=== PATIENT | male | born 1940 | race Caucasian/White ===

== ENCOUNTER → 2016-03-13 | Day surgery (SDC) | payer OTHER ==
[2016-03-07 13:32] VITALS: Ht 180.3 cm; Wt 106.4 kg
[~2016-03-13] VITALS: Ht 180.3 cm; Wt 106.4 kg
[~2016-03-13] MED LIST: 500ML BSS 0.3ML EPI 1:1000PF IRRIG ONE; ACETAMINOPHEN 325 MG TAB PO PRN; AMVISC PLUS 0.8ML SYRINGE INT OCU ONE; ATOR-24 PO; BRIMONIDINE TART 0.2% OP SOLN PER DROP CHARGE ONE; BSS FLUSH ONE; CLON0.5T3 PO; DARI15TA PO; ENDOCOAT 0.85ML SYRINGE INT OCU ONE; EpINEphrine INJ 1MG/ML AMP 1 MG/ML AMP ONE; FURO-85 PO; IRON PO; LACTATED RINGER'S 1000ML 500 ML IV SCH; LIDOCAINE 4% OP SOLN DROP CHARGE ONE; LIDOCAINE 4% OP SOLN DROP CHARGE OPL SCH; LIDOCAINE HCL 1% MPF 2 ML VIAL ONE; MIDAZOLAM HCL 1 MG/ML 2ML VIAL ONE; MOXIFLOXACIN OPH SOLN PER DROP CHARGE ONE; POTA10CA28 PO; POVIDONE-IODINE OP SOLN 30 ML BTL ONE; PROP80TA2 PO; PROPARACAINE 0.5% OP SOLN PER DROP CHARGE OPL SCH; PROPARACAINE HCL 0.5% OP SOLN 15 ML BTL OPL ONE; RANI150T3 PO; TOBRAMYCIN/DEXAMETHASONE OPH OINT PER APPLN CHARGE ONE; VITAMIN D2 PO; [UNRECOGNIZED DRUG - OTHER] PO
[2016-03-13] MEDS: PHENYLEPHRINE HCL 2.5% OP SOLN PER DROP CHARGE OPL SCH ×2 (07:37→07:42)
[2016-03-13] MEDS: TROPICAMIDE 1% OP SOLN PER DROP CHARGE OPL SCH ×2 (07:38→07:43)
[2016-03-13] MEDS: CYCLOPENTOLATE HCL 1% OP SOLN PER DROP CHARGE OPL SCH ×2 (07:39→07:44)
[2016-03-13] MEDS: KETOROLAC 0.5% OP SOLN PER DROP CHARGE OPL SCH ×2 (07:40→07:45)
[2016-03-13] MEDS: MOXIFLOXACIN OPH SOLN PER DROP CHARGE OPL SCH ×2 (07:41→07:51)
--- NOTE | 2016-03-13 08:09 | History & Physical Bridge - [place] ---
H&P Re-Evaluation Bridge Note: I have examined the patient, reviewed the History & Physical and in the interval since the performance of the History & Physical I have noted the following changes of clinical significance: No changes noted
--- NOTE | 2016-03-13 08:59 | Anesthesia Progress Nt - [facility] ---
Anesthesia Post Op Note Date & Time Mar 13, 2016 at 09:00 Vital Signs Pain Intensity: 0 Vital Signs Past 12 Hours Date Time Temp Pulse Resp B/P Pulse Ox O2 Delivery O2 Flow Rate FiO2 03/13/16 08:43 16 148/95 03/13/16 08:42 49 03/13/16 08:42 49 168/95 96 03/13/16 08:38 16 158/89 03/13/16 08:37 50 03/13/16 08:37 50 95 03/13/16 08:34 16 165/87 03/13/16 07:54 59 16 159/81 03/13/16 07:31 36.3 52 16 165/99 95 Room Air Notes Mental Status: alert / awake / arousable, participated in evaluation Nausea / Vomiting: adequately controlled Pain: adequately controlled Airway Patency, RR, SpO2: stable & adequate BP & HR: stable & adequate Hydration State: stable & adequate Anesthetic Complications: no major complications apparent
[2016-03-13 09:15] VITALS: TEMP 36.1
--- NOTE | 2016-03-13 09:15 | Discharge Instructions-SurgCtr ---
Discharge Instructions Visit Reason for Visit: Cataract Left Eye Discharge Discharge Diagnosis / Problem: cataract left eye Discharge Goals Goal(s): Improve function Activity Recommendations Activity Limitations: per Instructions/Follow-up section Lifting Limitations: no more than 5 pounds Anesthesia . Post Anesthesia Instructions: If you have had General Anesthesia or IV Sedation: * Do not drive today. * Resume driving when surgeon permits. * Do not make important decisions or sign legal documents today. * Call surgeon for: 1. Temperature elevations greater than 101 degrees F. 2. Uncontrollable pain. 3. Excessive bleeding. 4. Persistent nausea and vomiting. 5. Medication intolerance (nausea, vomiting or rash). * For nausea and vomiting use only clear liquids such as: tea, soda, bouillon until nausea subsides, then gradually increase diet as tolerated. * If you have any concerns or questions, call your surgeon's office. If physician is unavailable and it is an emergency, call 911 or go to the nearest emergency room. . Instructions / Follow-Up Instructions / Follow-Up ACTIVITY RECOMMENDATIONS: * Light activities * You may walk outside, read, watch television. * Mild irritation and blurred vision are common for the first few days, redness around the white part of the eye is common. MEDICATIONS: Resume previous medications unless instructed otherwise by your surgeon. Eye drops (today and tomorrow): Vigamox - one drop in operative eye every 2 hours while awake Prednisolone 1% - one drop in operative eye every 2 hours while awake Bromfenac - one drop in operative eye once daily SPECIAL CARE INSTRUCTIONS: * If any problems or concerns, please call Dr. Jc's office at . * Keep plastic shield taped over eye to sleep at night. * Keep plastic shield taped over eye except to administer eye drops. * Keep plastic shield on until office visit the following day. FOLLOW UP VISIT: Follow-up with Dr. Jc in the [place] office as scheduled. If not already scheduled, please call the office at . Diet Recommendations Home Diet: resume previous diet Procedures Procedures Performed: Left Cataract Phacoemulsification With Intraocular Lens Implant; Toric Lens Pending Studies Studies pending at discharge: no Medical Emergencies . Who to Call and When: Medical Emergencies: If at any time you feel your situation is an emergency, please call 911 immediately. . Non-Emergent Contact Non-Emergency issues call your: [employer] . . "Provider Documentation" section prepared by Gian Jc.
--- NOTE | 2016-03-13 09:16 | [facility] Post Operative Brief Note ---
Immediate Operative Summary Operative Date Mar 13, 2016. Pre-Operative Diagnosis Left Eye Cataract Post-Operative Diagnosis Same Procedure(s) Performed Left Cataract Phacoemulsification With Intraocular Lens Implant; Toric Lens Surgeon Dr Jc Quantitative Manager Surgeon(s) None Estimated Blood Loss 0ml Findings cataract left eye Specimens None Complication(s) None Disposition Recovery Room / PACU
[2016-03-13 09:36] VITALS: BP 155/94; PULSE 59; O2SAT 97
--- NOTE | 2016-03-13 09:47 | OPERATIVE REPORT ---
DATE OF OPERATION: 03/13/2016 PREOPERATIVE DIAGNOSIS: Cataract and astigmatism, left eye. POSTOPERATIVE DIAGNOSIS: Same. PROCEDURE PERFORMED: Phacoemulsification cataract extraction with toric intraocular lens placement with femtosecond laser, left eye. COMPLICATIONS: None. ESTIMATED BLOOD LOSS: None. ANESTHESIA: Local with sedation. DESCRIPTION OF PROCEDURE: After informed consent was obtained in the holding area, the patient was taken to the femtosecond laser room where the patient's left eye was docked with the femtosecond laser. The primary incision was made at the 3 o'clock position of the patient's left eye as well as the capsulorrhexis and prechop of the lens. Once this was completed, the patient was taken to the operating room where cardiac monitoring leads and oxygen by nasal cannula was administered by anesthesia. Gentle IV sedation was given and the patient's left eye was prepped and draped in usual sterile fashion. A wire lid speculum was placed in the left eye and the operating microscope swung into position. Using 0.12 forceps and a supersharp blade, a paracentesis port was made 5 o'clock position of the patient's left eye. 1% nonpreserved lidocaine was injected into the anterior chamber for anesthesia. EndoCoat was then injected into the anterior chamber. A Sd spatula was then used to enter the primary incision at the 3 o'clock position of the patient's left eye. Amvisc was then injected underneath the EndoCoat on top of the capsulorrhexis and the free floating cap was removed with the Utrata forceps. BSS on a hydrodissection cannula was then used to hydrodissect the lens nucleus away from the capsular bag. The phacoemulsification handpiece was then used in a stop and chop fashion to remove the lens nucleus. Irrigation aspiration handpiece was then used to remove the residual cortical material. The eye was then filled with Amvisc and an BREE ZCT 225 19.0 Diopter intraocular lens was injected into the capsular bag. The primary incision was then hydrated and the irrigation-aspiration handpiece was used to remove the viscoelastic material from the eye. At the conclusion of removing the viscoelastic material, the toric lens was aligned along the 157 degree axis of the patient's left eye. The wounds were noted to be watertight. The wire lid speculum was removed from the eye, Vigamox, brimonidine and TobraDex ointment were placed on the eye and the eye was shielded. The patient tolerated the procedure well and was taken to recovery area in stable condition. I attest to the content of the Intraoperative Record and any orders documented therein. Any exceptions are noted below. MTDD
== END | disposition home or self-care (01) ==
LOC: X.SURG 07:18
PROVIDERS: ATTEND Ophthalmology
DX: H26.9 Unspecified cataract (principal); H52.202 Unspecified astigmatism, left eye; I10 Essential (primary) hypertension; Z98.41 Cataract extraction status, right eye; Z98.890 Other specified postprocedural states; Z85.828 Personal history of other malignant neoplasm of skin; E66.9 Obesity, unspecified; Z79.899 Other long term (current) drug therapy

== ENCOUNTER → 2017-03-16 | Outpatient (CLI) | payer OTHER ==
[~2017-03-16] MED LIST changes: -500ML BSS 0.3ML EPI 1:1000PF IRRIG ONE; -ACETAMINOPHEN 325 MG TAB PO PRN; -AMVISC PLUS 0.8ML SYRINGE INT OCU ONE; -BRIMONIDINE TART 0.2% OP SOLN PER DROP CHARGE ONE; -BSS FLUSH ONE; -ENDOCOAT 0.85ML SYRINGE INT OCU ONE; -EpINEphrine INJ 1MG/ML AMP 1 MG/ML AMP ONE; -LACTATED RINGER'S 1000ML 500 ML IV SCH; -LIDOCAINE 4% OP SOLN DROP CHARGE ONE; -LIDOCAINE 4% OP SOLN DROP CHARGE OPL SCH; -LIDOCAINE HCL 1% MPF 2 ML VIAL ONE; -MIDAZOLAM HCL 1 MG/ML 2ML VIAL ONE; -MOXIFLOXACIN OPH SOLN PER DROP CHARGE ONE; -POVIDONE-IODINE OP SOLN 30 ML BTL ONE; -PROPARACAINE 0.5% OP SOLN PER DROP CHARGE OPL SCH; -PROPARACAINE HCL 0.5% OP SOLN 15 ML BTL OPL ONE; -TOBRAMYCIN/DEXAMETHASONE OPH OINT PER APPLN CHARGE ONE
== END | disposition home or self-care (01) ==
LOC: C.LABPVFM 09:13
PROVIDERS: ATTEND Urology
DX: N40.0 Benign prostatic hyperplasia without lower urinary tract symptoms (principal)

== ENCOUNTER → 2017-07-02 | Outpatient (CLI) | payer OTHER ==
--- NOTE | 2017-07-02 12:40 | DIAGNOSTIC IMAGING REPORT ---
CHEST 2 VIEWS ROUTINE HISTORY: Cough. COMPARISON: Chest 09/29/2008. FINDINGS: The lungs are clear. Cardiac silhouette is normal in size. No pleural effusions. No pneumothorax. IMPRESSION: No acute process. Electronically signed by: Patricio Felix M.D. 07/02/2017 12:39 PM Dictated Date/Time: 07/02/2017 12:37 PM
== END | disposition home or self-care (01) ==
LOC: C.RAD 12:06
PROVIDERS: ATTEND Family Medicine
DX: R05 Cough (principal); D86.0 Sarcoidosis of lung

== ENCOUNTER 2019-08-19 06:43 | Observation (INO) ==
--- NOTE | 2019-08-03 11:54 | History and Physical Report ---
DATE OF ADMISSION: 08/19/2019 CHIEF COMPLAINT: Bilateral knee pain and discomfort, right side greater than left. HISTORY OF PRESENT ILLNESS: The patient is a 78-year-old gentleman who is referred by my partner, Dr. Priest, for surgical treatment of his knees. He has a long history of bilateral knee pain and discomfort that has gradually gotten worse over time. He does have a history of trauma back in the with bilateral femur fractures, treated in traction. Over the years, he developed increased pain and discomfort in both knees. He has been through extensive conservative care including medicines and injections, which provided pretty minimal relief. Pain is fairly global. The more he walks, the more it hurts. He has limited walking tolerance. He would like to have both knees replaced at some point, but the right one is worse than the left. PAST MEDICAL HISTORY: 1. Hypertension. 2. Elevated cholesterol. 3. Gastroesophageal reflux disease. 4. BPH. 5. Kidney stones. 6. Peripheral edema. PAST SURGICAL HISTORY: Include: 1. Back surgery. 2. Cataract surgery. 3. Left knee open surgery in the . ALLERGIES: PENICILLIN, WHICH CAUSES A RASH. No breathing problems. CURRENT MEDICINES: Include: 1. Clonazepam 0.5 mg a day. 2. Atorvastatin 40 mg. 3. Propranolol 80 mg. 4. Darifenacin 2.5 mg. 5. Alfuzosin 10 mg. 6. Myrbetriq 50 mg a day. SOCIAL HISTORY: A 78-year-old male. He is . Lives in [place]. Does not smoke. No significant alcohol intake. FAMILY HISTORY: Noncontributory. REVIEW OF HISTORY: Negative for diabetes, neurologic problems, vascular problems or bleeding disorders. Denies any current chest pain or shortness of breath. No history of DVT or PE. PHYSICAL EXAMINATION: GENERAL: Shows a fairly large middle-aged male. He has a fairly large stature. HEENT: Benign. NECK: Supple, no lymphadenopathy. LUNGS: Clear to auscultation. HEART: Has regular rate and rhythm. ABDOMEN: Soft, nontender, nondistended. EXTREMITIES: Grossly neurovascularly intact except as follows: Examination of both knees reveal patient walks with a bit of a waddling gait and keeps his knees a bit stiff. Examination of the right knee reveals varus alignment. He is tender over the medial joint line. Small knee effusion. Range of motion about 5 degrees short of full extension and 120 degrees of flexion. There is no instability. No pain with hip motion. Examination of the right foot and leg does reveal this varus alignment and he does have some weakness with foot motion, particularly dorsiflexion, plantarflexion and eversion. Examination of the left knee reveals varus alignment. He has got well-healed oblique incision on the medial side of his knee. Small knee effusion. Range of motion 5-125. No instability. X-RAYS: X-rays of both knees reveal advanced bilateral knee DJD. He has got complete loss of medial joint space in both knees. He has got some tibial femoral subluxation bilaterally. He does have evidence of distal femoral malunion on the right side. X-rays of the right femur reveal a mid to distal femur malunion. The alignment is pretty good. Maybe just a little bit of valgus and the shaft itself was completely displaced, but in pretty good alignment otherwise. ASSESSMENT: A 78-year-old male with a history of bilateral femur fractures in the past as well as a left open meniscectomy with bilateral knee degenerative joint disease. He failed all conservative care. The right knee is bothered more than the left, and he would like to proceed with knee replacement. PLAN: We are going to take him to the operating room and do a right total knee replacement. The risks and benefits of this procedure were explained to the patient including but not limited to DVT, PE, , infection, neurological injury, vascular injury, bleeding problem, pain, limited range of motion, stiffness, failure to relieve symptoms, incomplete relief of symptoms, need for further surgery in the future, fracture, leg length inequality, nerve palsy, etc. The patient understands and desires to proceed. Informed consent was obtained. Of note, he does have significnant weakness in the right foot related to previous trauma with foot dorsiflexion and plantarflexion about 1 out of 5 strenght. I did tell him that this is not going to make this any better and he is fully aware of that up with his added. He does report this PENICILLIN ALLERGY, but it is just a rash. We will give him Ancef. I do think that we can just use a typical intramedullary guide despite his malunion as it is pretty well aligned. He does have slight rotation of the femur distally and we will need to check intraoperatively and make sure his femoral component is adequately externally rotated. As far as discharge plans, he is planning to be discharged to home using [facility] home health program. MABEL
--- NOTE | 2019-08-09 22:28 | PAT Medication Instructions ---
Medication Instructions Date of Service August 09, 2019 Home Medications Medication Instructions Recorded meloxicam 15 mg tablet 15 mg PO DAILY PRN #30 tab 03/03/19 atorvastatin 40 mg tablet 40 mg PO HS clonazepam 0.5 mg tablet 0.5 mg PO HS propranolol 80 mg capsule,24 hr,extended release 80 mg PO QAM meloxicam 15 mg tablet 15 mg PO DAILY PRN darifenacin 7.5 mg tablet,extended release 24 hr 7.5 mg PO QAM alfuzosin 10 mg PO QPM calcium carbonate [Tums E-X] 1 mg PO UD PRN mirabegron [Myrbetriq] 50 mg PO QAM ASK your surgeon for instructions meloxicam 15 mg tablet 15 mg PO DAILY PRN DO NOT take the morning of surgery darifenacin 7.5 mg tablet,extended release 24 hr 7.5 mg PO QAM calcium carbonate [Tums E-X] 1 mg PO UD PRN mirabegron [Myrbetriq] 50 mg PO QAM Take morning of surgery With a small sip of water, OTHERWISE NOTHING TO EAT OR DRINK AFTER MIDNIGHT: propranolol 80 mg capsule,24 hr,extended release 80 mg PO QAM Take evening before surgery atorvastatin 40 mg tablet 40 mg PO HS clonazepam 0.5 mg tablet 0.5 mg PO HS alfuzosin 10 mg PO QPM calcium carbonate [Tums E-X] 1 mg PO UD PRN (if needed) Other Notes If you have any questions please call us at [phone] or [phone] or [phone] or [phone]
--- NOTE | 2019-08-12 12:49 | Anesthesiology Consultation ---
Date of Service August 12, 2019 Assessment & Plan (1) Encounter for pre-operative examination: Per PAT assessment on 08/11: Travel screen negative. No known COVID-19 positive contacts. No current COVID-19 related symptoms. Patient having preop COVID testing done 08/13 ([facility]). Awaiting results. 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 Due to this EKG abnormality, patient underwent an Echocardiogram today.. Based on his functional status without limiting cardiopulmonary symptoms and his normal LV systolic function -- Patient is an acceptable surgical risk to proceed with surgery as scheduled provided he take his usual dose of Propranolol ER 80 mg the morning of surgery with sips of water. There is no need for further cardiac workup at this time." Chart Review Chart Review: Acceptable Risk for Surgery (pending T&S) and Patient seen in Pre Admission Testing Teaching & Discussion Pre-Anesthesia Teaching/Discussion Notes: Instructed NPO after midnight before surgery,except medications with 15 cc of water. Medication instructions provided according to the [facility] guidelines. History Surgery Operation Date: 08/19/19 12:30 Proposed Procedures p Right Total Knee Arthroplasty - Tha Mueller MD Height/Weight Height: 5 ft 10 in Weight: 107.4 kg Allergies Allergy/AdvReac Type Severity Reaction Status Date / Time amoxicillin Allergy Unknown RASH Verified 08/05/19 11:32 Penicillins Allergy Unknown Rash Verified 08/05/19 11:32 ALLERGEN AdvReac Unknown resulted Uncoded 08/05/19 11:32 in kidney dysfunction Medications Home Medications Medication Instructions Recorded Confirmed Last Taken atorvastatin 40 mg tablet 40 mg PO HS #90 tab 12/09/18 08/05/19 Unknown clonazepam 0.5 mg tablet 0.5 mg PO HS #30 tab 12/09/18 08/05/19 Unknown propranolol 80 mg capsule,24 80 mg PO QAM #90 cap 12/09/18 08/05/19 Unknown hr,extended release meloxicam 15 mg tablet 15 mg PO DAILY PRN #30 tab 03/03/19 08/05/19 Unknown darifenacin 7.5 mg tablet,extended 7.5 mg PO QAM tab 06/27/19 08/05/19 Unknown release 24 hr alfuzosin 10 mg PO QPM 08/05/19 08/05/19 Unknown calcium carbonate [Tums E-X] 1 mg PO UD PRN 08/05/19 08/05/19 Unknown mirabegron [Myrbetriq] 50 mg PO QAM 08/05/19 08/05/19 Unknown Past Medical History Medical History BPH (benign prostatic hyperplasia) CKD (chronic kidney disease) under surveillance by PCP (baseline creatinine 1.5 per chart review) GERD (gastroesophageal reflux disease) controlled Hearing deficit History of kidney stones History of skin cancer s/p resection History of urinary urgency Hx of sarcoidosis stable/no recent issues Hyperlipidemia Hypertension Obesity Osteoarthritis Restless leg syndrome Exercise / Class Metabolic Activity III < 4 Walking/Shop/Light housework Past Family History Family History Sister Family history of diabetes mellitus Father Family hx of colon cancer Past Surgical History Surgical History History of esophagogastroduodenoscopy (EGD) History of lumbar fusion Hx of arthroscopic knee surgery LEFT Hx of cataract surgery RIGHT AND LEFT Hx of colonoscopy with polypectomy Past Anesthesia History No Hx of Anesthesia Complications and No Family Hx of Anesthesia Complications History of PONV No Hx of PONV and No Hx of Motion Sickness Social History Smoking Status: Never smoker Do You Dip or Chew Tobacco: No Hx Alcohol Use: No Hx Substance Use: No Review of Systems Patient denies chest pain, shortness of breath, fever, chills, reflux, cough, wheezing, palpitations. Physical Exam Vital Signs VITALS BP 136/76 P 54 TEMP 98.6 SP02 95%RA RESP 16 PHYSICAL Full neck and c-spine range of motion. Full TMJ range of motion. TMD 3 finger breaths Mallampati Score 2 Dentition: missing molars, + crowns Lungs: clear throughout to auscultation Cardiac: regular rate and rhythm, no murmurs noted Spine: normal Carotid arteries: negative bruit Extremities: no edema Testing Laboratory Results 08/12/19 13:16 08/12/19 13:16 PT 10.9 Seconds (9.0-12.0) 08/12/19 13:16 INR 1.0 (0.9-1.1) 08/12/19 13:16 APTT 28.8 Seconds (21.0-31.0) 08/12/19 13:16 Electrocardiogram Date: 04/28/19 SB at 54bpm. RBBB. LAFB. LVH with repolarization abnormality. Subsequent ECHO/cardiology evaluation for further evaluation of this* Chest X-Ray Date: 04/28/19 Findings: + NAD Echocardiogram Date: 06/27/19 EF 55%. No RWMA. Mild cLVH. No significant valvular disease.
[2019-08-12 15:49] LABS: Basophils # (auto) 0.01 K/uL (0-0.2); Basophils % (auto) 0.2 %; Eosinophils % (auto) 1.6 %; Hematocrit (blood only) 43.2 % (42-52); Hemoglobin 14.7 g/dL (14.0-18.0); Immature Granulocytes # (auto) 0.02 K/uL (0.00-0.02); Immature Granulocytes % (auto) 0.3 %; Lymphocytes # (auto) 2.36 K/uL (1.2-3.4); Lymphocytes % (auto) 36.8 %; Mean Corpuscular Hemoglobin 30.4 pg (25-34); Mean Corpuscular Volume 89.4 fL (80-100); Mean Platelet Volume 10.2 fL (7.4-10.4); Monocytes # (auto) 0.51 K/uL (0.11-0.59); Neutrophils # (auto) 3.41 K/uL (1.4-6.5); Neutrophils % (auto) 53.1 %; Platelet Count 217 K/uL (130-400); RDW Coefficient of Variation 12.6 % (11.5-14.5); RDW Standard Deviation 41.2 fL (36.4-46.3); Red Blood Count 4.83 M/uL (4.7-6.1); White Blood Count 6.41 K/uL (4.8-10.8)
[2019-08-12 15:57] LABS: Blood Urea Nitrogen 17 mg/dl (7-18); C Reactive Protein < 0.29 mg/dl (0-0.29); Calcium 8.5 mg/dl (8.5-10.1); Carbon Dioxide 25 mmol/L (21-32); Chloride 109 mmol/L (98-107); Est GFR (African American) 50.6; Est GFR (Non-African American) 43.7; Glucose 89 mg/dl (70-99); Sodium 141 mmol/L (136-145)
[2019-08-12 16:01] LABS: Partial Thromboplastin Time 28.8 Seconds (21.0-31.0); Prothrombin Time 10.9 Seconds (9.0-12.0)
[~2019-08-19 06:43] MED LIST changes: +ACETAMINOPHEN 500 MG TAB PO SCH; -ATOR-24 PO; +BUPIVACAINE LIPOSOME/PF 266 MG, BUPIVACAINE/EPINEPHRINE 50 ML, SODIUM CHLORIDE 0.9% 30 ... INFIL SCH; +CEFAZOLIN 2000MG 2,000 MG/15 ML SYR IV SCH; -CLON0.5T3 PO; -DARI15TA PO; +FAMOTIDINE 20 MG TAB PO SCH; -FURO-85 PO; +GABAPENTIN 300 MG CAP PO SCH; -IRON PO; +LR 500ML BOLUS, THEN 15ML/HR IV SCH; +LR 60ML/HR IV SCH; +METOCLOPRAMIDE HCL 10 MG TABLET PO SCH; -POTA10CA28 PO; -PROP80TA2 PO; -RANI150T3 PO; +TRANEXAMIC ACID 1,000 MG **IV Intra-op IV SCH; -VITAMIN D2 PO; -[UNRECOGNIZED DRUG - OTHER] PO
--- NOTE | 2019-08-19 06:52 | History & Physical Bridge Note ---
Date of Service August 19, 2019 History & Physical Bridge Note I have examined the patient, reviewed the History & Physical and in the interval since the performance of the History & Physical I have noted the following changes of clinical significance: no changes noted
[2019-08-19] MEDS ORDERED: BUPIVACAINE 0.5 % 5 MG/1 ML PF 10ML VIAL ONE (07:05)
[2019-08-19] MEDS ORDERED: BUPIVACAINE 0.25% 30 ML VIAL ONE (07:05)
[2019-08-19] MEDS ORDERED: BUPIVACAINE/EPINEPHRINE 0.25% 1:200,000 30 ML VIAL ONE (08:39)
[2019-08-19] MEDS ORDERED: SODIUM CHLORIDE 0.9% PF 50 ML VIAL ONE (08:39)
[2019-08-19] MEDS ORDERED: BUPIVACAINE LIPOSOME 1.3% 266 MG/20 ML VIAL ONE (08:40)
[2019-08-19] MEDS ORDERED: BACITRACIN INJ 50,000 UNIT VIAL ONE (08:40)
--- NOTE | 2019-08-19 10:37 | Post Operative Brief Note ---
PG Immediate Post Op with CF Date of Surgery August 19, 2019 Pre & Post Diagnosis Operation Date: 08/19/19 08:50 Pre-Op Diagnosis: Right Knee Advanced Degenerative Joint Disease Post-Op Diagnosis: Right Knee Advanced Degenerative Joint Disease I identified the patient and participated in the time-out.: Yes Procedure Operation Date: 08/19/19 08:50 Actual Procedures p Right Total Knee Arthroplasty(Right) - Tha Mueller MD Surgeon Tha Mueller MD Mixer Wet Pour Rick, PAC Estimated Blood Loss 50 Findings Consistent with Post-Op Diagnosis Fluids 700 cc Specimens Specimen Description: A. Right Knee Bone and Tissue Drains [place] Catheter Anesthesia Type Spinal MAC Complications none Disposition Accompanied Patient To Recovery: Yes Disposition: Recovery Room
--- NOTE | 2019-08-19 10:49 | Operative Report ---
Post Operative Report Pre & Post Diagnosis Operation Date: 08/19/19 08:50 Pre-Op Diagnosis: Right Knee Advanced Degenerative Joint Disease Post-Op Diagnosis: Right Knee Advanced Degenerative Joint Disease I identified the patient and participated in the time-out.: Yes Procedure Operation Date: 08/19/19 08:50 Actual Procedures p Right Total Knee Arthroplasty(Right) - Tha Mueller MD Surgeon Tha Mueller MD Accounting Lecturer Rick, PAC Estimated Blood Loss 50 Findings Consistent with Post-Op Diagnosis Operative findings real advanced right knee DJD. He had extensive grade 4 [id number] disease of the medial femoral condyle medial tibial plateau. He had a fixed varus deformity to his knee and had distal femoral malunion. Moderate sized joint effusion. Some mild diffuse osteopenia. Fluids 700 cc. Specimens Right knee sent for pathology. Drains None. Anesthesia Type Spinal MAC Complications none Disposition Accompanied Patient To Recovery: Yes Disposition: Recovery Room Indications Patient is a 78-year-old gentleman is had a long history of knee problems. He did sustain bilateral femur fractures back in the 70s from a fall and had distal femoral malunion on both side as result. He has been through extensive conservative treatment. He failed this. X-ray showed advanced bilateral knee DJD. The right side was more symptomatic than the left. He elected proceed with total knee arthroplasty. Despite his malleoli unions his alignment was pretty good and we were able to use intramedullary devices. He does have a history of chronic right lower extremity neurological injury due to this a fall back in the 70s and had weakness in his right leg and foot. Description of Procedure Operative implants consist of: 1. Biomet Vanguard size 72.5 right posterior by femoral component. 2. Biomet size 79 tibial tray. 3. 10 mm Po stabilized polyethylene insert. 4. 34 x 8 and half all poly-patella. Patient was taken to the operating room identified placed on the operating table supine position protectors were properly padded. IV antibiotics arrived by anesthesia team. A spinal anesthetic and abductor canal block had been provided in the holding area. Polk catheter was placed in sterile fashion. Right f actor was then placed in the right lower extremities and prepped draped in usual sterile fashion. Right leg was elevated exsanguinated with use of an Esmarch and turns placed at 300 mmHg. An anterior approach to the right knee was then performed through a longitudinal incision centered over the patella. Sharp dissection was gone through subcutaneous tissue down to the extensor mechanism. A medial parapatellar arthrotomy incision was made. Some subperiosteal dissection was carried out medially. The fat pad was resected from each patella tendon. The lateral patellofemoral ligament was released. Patella was subluxated laterally and the knee was flexed. The osteophytes were taken off distal femur. The ACL and PCL were then released in the distal femur and the tibia subluxate anterior ly. The external treatment line jig was then placed in the interface the tibia and adjusted 14 mm medially. Proximal tibial cut was made remove about 2 mm of bone from medial side. Some osteophytes were taken off medial and posterior medially. Tibia sized to a size 79. Attention drawn the femur. The distal femur then with a sharp drill. The intramedullary guide was placed. This only a went part way up the femur which we anticipated. Did give us good alignment within the femur. The distal femoral cutting block was placed. We used a 6 degree cut. The distal femoral cut was made to take an additional 3 mm bone off distal femur. The femur was then sized to a size 72.5. The AP cutting block was pinned parallel to the epicondylar axis which was 4 degrees of external rotation. The anterior cut, anterior chamfer, posterior cut, posterior chamfer cuts were made. Box cutting guide was placed in just slight lateral box cut was made. The knee was flexed. The remnants of medial lateral menisci were excised. The osteophytes were taken off the posterior aspect of the femur. A trial femoral component was placed. Tibial tray was pinned in maximum external rotation the drill and stem punch were used to create defect in proximal to for the tibial tray. Knee was then trialed and the 10 mm insert fit most appropriately. Attention drawn the patella. Patella was cleaned of all soft tissues. Patella thickness measured 23 mm in thickness was cut down to 14. Was sized to a size 34 patella. Locals were drilled for 34 patella. The lateral osteophyte was removed. Patella button was placed. Knee was taken through range of motion patella tracked nicely with no thumbs test. Attention drawn to place the permanent components. All trial components were removed. Bone plug was placed into the distal femur limit blood loss put a double batch Pal[place]os G cement was mixed. A [employer] Servicesard size 72.5 right posterior by femoral component, size 79 tibial tray, a 10 mm posterior box polyethylene insert, and a 34 by a Cristal all poly-patella were then cemented in place. The knee was brought out into full extension until cement hardened. Final cement check was then performed. Pericapsular tissues were injected with total 100 cc of combination of 20 cc of Exparel, 30 cc normal saline, 50 cc of quarter percent Marcaine with epinephrine. Patient did receive 1 g of tranexamic acid. The tourniquet was then let down for final tourniquet time 55 minutes. Hemostasis assured use electrocautery. The wounds once again irrigated. Extensor mechanism closed with combination 1 PDS suture #1 Vicryl suture in [id number] fashion. Extensor mechanism checked found to be intact with subcutaneous tissue then closed with 2 Dexon suture buried fascia skin was closed skin porsche. Leg was then cleaned dried a sterile dressing was Xeroform, 4 x 4's, sterile cast padding Dougie bandage were applied. Patient then transferred to the recovery room in stable condition. Patient tolerated procedure well no complications. I attest to the content of the Intraoperative Record and any orders documented therein. Any exceptions are noted below.
--- NOTE | 2019-08-19 10:58 | XRay Report ---
XR knee RT 1 or 2V routine HISTORY: 78 years-old Male Surgical Post Op right knee total joint arthroplasty COMPARISON: Right femur radiographs 04/28/2019 TECHNIQUE: 2 views the right knee FINDINGS: Healed remote fracture deformity of the distal femoral diaphysis. Right knee total joint arthroplasty demonstrates satisfactory alignment. No acute fracture or retained foreign body. Anterior midline sk in porsche are noted along with expected postsurgical soft tissue swelling and deep tissue air with s urgical drainage catheter. IMPRESSION: 1. Right knee total joint arthroplasty with expected postoperative findings. 2. Partially imaged healed remote distal femoral fracture deformity. ACT 112: Negative or not required by law. The above report was generated using voice recognition software. It may contain grammatical, syntax o r spelling errors. Electronically signed by: Edgar Mai M.D. 08/19/2019 10:57 AM
[2019-08-19] MEDS ORDERED: ATROPINE SULFATE 0.1 MG/ML 10ML SYR IV PRN (11:01)
[2019-08-19] MEDS ORDERED: ePHEDrine sulfate 50 MG/ML AMP IV PRN (11:01)
[2019-08-19] MEDS ORDERED: NO NSAIDS SCH (11:25)
[2019-08-19] MEDS ORDERED: NALOXONE HCL 0.4 MG/1 ML VIAL/CARP IV PRN (11:25)
[2019-08-19] MEDS ORDERED: ALUMINUM/MAGNESIUM SUSP 30 ML UDC PO PRN (11:25)
[2019-08-19] MEDS ORDERED: METOCLOPRAMIDE HCL INJ 5 MG/ML 2 ML VIAL IV PRN (11:25)
[2019-08-19] MEDS ORDERED: bisacodyL 10 MG SUPP PR PRN (11:25)
[2019-08-19] MEDS ORDERED: CALCIUM CARBONATE PO PRN (11:25)
[2019-08-19] MEDS ORDERED: TAMSULOSIN HCL 0.4 MG CAP PO PRN (11:25)
[2019-08-19] MEDS ORDERED: ONDANSETRON INJ 2 MG/ML 2 ML VIAL IV PRN (11:25)
[2019-08-19] MEDS ORDERED: MAGNESIUM HYDROXIDE SUSP 30 ML UDC PO PRN (11:25)
[2019-08-19] MEDS: SODIUM CHLORIDE 0.9% 1000ML 1,000 ML IV SCH ×2 (11:32→19:24)
[2019-08-19] MEDS: HYDROmorphone INJ 0.5 MG/0.5 ML SYR IV PRN ×2 (13:34→17:25)
--- NOTE | 2019-08-19 13:56 | Anesthesiology Progress Note ---
Date of Service August 19, 2019 Anesthesia Post Procedure Vital Signs Vital Signs: Temp Pulse Pulse Pulse Resp BP BP 08/19/19 13:17 54 L 16 163/88 H 08/19/19 12:17 53 L 159/87 H 08/19/19 11:45 51 L 14 147/76 H 08/19/19 11:15 36.5 C 55 L 14 150/71 H 08/19/19 11:05 36.4 C L 51 L 15 130/77 08/19/19 10:55 51 L 15 132/70 08/19/19 10:45 52 L 14 115/69 08/19/19 10:39 36.0 C L 54 L 20 116/74 08/19/19 08:15 58 L 16 168/90 H 08/19/19 07:16 37.5 C 62 18 163/92 H Pulse Ox 08/19/19 13:17 96 08/19/19 12:17 99 08/19/19 11:45 96 08/19/19 11:15 96 08/19/19 11:05 96 08/19/19 10:55 98 08/19/19 10:45 99 08/19/19 10:39 99 08/19/19 08:15 95 08/19/19 07:16 96 Pain Intensity Right Knee: Pain Intensity: 0 Transfer of Care Handoff Completed per policy Notes Mental Status: alert / awake / arousable and participated in evaluation Patient Amnestic to Procedure: Yes Nausea / Vomiting: adequately controlled Pain: adequately controlled Airway Patency, RR, SpO2: stable & adequate BP & HR: stable & adequate Hydration State: stable & adequate Neuraxial Anesthesia: was administered and sensory block is resolving Anesthetic Complications: no major complications apparent and Pt Satisfied with anesthetic care
[2019-08-19] MEDS: ASCORBIC ACID 500 MG TAB PO SCH (16:04)
[2019-08-19] MEDS: FERROUS GLUCONATE 324 MG TAB PO SCH (16:04)
[2019-08-19] MEDS: ACETAMINOPHEN 500 MG TAB PO SCH (16:04)
[2019-08-19] MEDS: CEFAZOLIN 2000MG 2,000 MG/15 ML SYR IV SCH (16:06)
[2019-08-19] MEDS ORDERED: TRANEXAMIC ACID / 0.7% NACL 1,000 MG/100 ML BAG IV SCH (17:00)
--- NOTE | 2019-08-19 18:02 | Progress Notes ---
DATE: 08/19/2019 SUBJECTIVE: A 78-year-old gentleman postop from a right knee replacement. He is doing pretty well. He says he is having some foot pain. No chest pain or shortness of breath. Not feeling dizzy or lightheaded. Just getting the feeling back in his legs. OBJECTIVE: VITAL SIGNS: Temperature 36.5. Vital signs stable. GENERAL: Shows a pleasant middle-aged male. He is sitting up in bed, looks comfortable. LUNGS: Clear to auscultation. HEART: Has a regular rate and rhythm. ABDOMEN: Soft, nontender, nondistended. EXTREMITIES: Grossly neurovascularly intact except as follows: Examination of the right leg reveals it to be well aligned. Dressing is clean, dry and intact. His toes are pink with brisk refill and good distal pulse. He does have limited dorsiflexion and plantarflexion of his foot, which is back to his baseline, he has about 1/5 function. X-RAYS: X-rays of the right knee from recovery room are reviewed. It shows cemented posterior stabilized total knee arthroplasty. Components looked to be in good position. No signs of problems. ASSESSMENT: A 78-year-old gentleman with a history of femur fracture in the past, postoperative from a right knee replacement, doing pretty well. His neurovascular status looks to be stable. He does have weakness in this foot chronically. Pain is reasonably well-controlled at this point. PLAN: 1. DVT prophylaxis including thigh-high TEDs, SCDs, and aspirin twice a day. 2. PT/OT. Weight bear as tolerated. Right total knee protocol. 3. Pain control, doing okay with current pain regimen. We may need to adjust this as the spinal continues to wear off. 4. IV antibiotics x24 hours. 5. Disposition: Plan to discharge to home with some home health and his 's assistance once adequately recovered and medically stable.
[2019-08-19] MEDS: TRAMADOL HCL 50 MG TABLET PO PRN (19:24)
[2019-08-19] MEDS: DOCUSATE SODIUM 100 MG CAP PO SCH (20:47)
[2019-08-19] MEDS: ASPIRIN 81 MG ECTAB PO SCH (20:47)
[2019-08-19] MEDS: ALFUZOSIN HCL 10 MG TAB PO SCH (20:48)
[2019-08-19] MEDS: ATORVASTATIN 40 MG TAB PO SCH (20:48)
[2019-08-19] MEDS: clonazePAM 0.5 MG TAB PO SCH (20:48)
[2019-08-19] MEDS: SENNA 8.6 MG TAB PO SCH (20:49)
[2019-08-20] MEDS: CEFAZOLIN 2000MG 2,000 MG/15 ML SYR IV SCH (00:15)
[2019-08-20] MEDS: ACETAMINOPHEN 500 MG TAB PO SCH ×3 (00:15→16:00)
[2019-08-20] MEDS: TRAMADOL HCL 50 MG TABLET PO PRN ×2 (02:37→10:06)
[2019-08-20] MEDS: SODIUM CHLORIDE 0.9% 1000ML 1,000 ML IV SCH (03:12)
[2019-08-20 06:22] LABS: Hematocrit (blood only) 37.5 % (42-52); Hemoglobin 12.5 g/dL (14.0-18.0); Mean Corpuscular Hemoglobin 30.5 pg (25-34); Mean Corpuscular Hgb Conc 33.3 g/dL (32-36); Mean Corpuscular Volume 91.5 fL (80-100); Mean Platelet Volume 9.8 fL (7.4-10.4); Platelet Count 169 K/uL (130-400); RDW Coefficient of Variation 12.9 % (11.5-14.5); RDW Standard Deviation 43.1 fL (36.4-46.3); White Blood Count 8.09 K/uL (4.8-10.8)
[2019-08-20 06:42] LABS: BUN Creatinine Ratio 13.8 (10-20); Creatinine Clr Calc Pharmacy 47.5 ml/min; Est GFR (African American) 48.2; Est GFR (Non-African American) 41.6; Potassium 4.1 mmol/L (3.5-5.1)
[2019-08-20] MEDS: HYDROmorphone INJ 0.5 MG/0.5 ML SYR IV PRN ×3 (07:36→17:14)
--- NOTE | 2019-08-20 08:04 | Progress Notes ---
DATE: 08/20/2019 SUBJECTIVE: A 78-year-old gentleman postop day 1 from right knee replacement. He is doing a little bit better this morning. Foot pain is improved. Having a little bit more knee pain. No chest pain or shortness of breath. Not feeling dizzy or lightheaded. OBJECTIVE: VITAL SIGNS: Temperature 37.2. Vital signs stable. GENERAL: Pleasant elderly male. He is sitting up in bed, looks pretty comfortable. EXTREMITIES: Examination of the right leg reveals the leg to be well aligned. Dressing is clean, dry, and intact. He can dorsiflex and plantarflex his foot slightly which is what he could do preoperatively. His neurological status is stable. He has got brisk refill. LABORATORY DATA: Hemoglobin 12.5. Hematocrit 37.5. Electrolytes fairly stable with creatinine 1.56. ASSESSMENT: A 78-year-old gentleman with underlying renal dysfunction postop day 1 from right knee replacement, doing pretty well. Pain seems to be controlled. His neurovascular status is stable. His creatinine is stable. PLAN: 1. DVT prophylaxis including thigh-high TEDs, SCDs, and aspirin twice a day. 2. PT/OT. Weightbear as tolerated. Right total knee protocol. 3. Pain control, doing okay with current pain regimen. 4. Disposition: Plan to discharge to home with some home health once adequately recovered and medically stable. We will follow him for the next 24 hours following his labs, pain control and renal function.
[2019-08-20] MEDS: ASPIRIN 81 MG ECTAB PO SCH ×2 (08:42→20:29)
[2019-08-20] MEDS: FERROUS GLUCONATE 324 MG TAB PO SCH ×2 (08:43→16:01)
[2019-08-20] MEDS: DOCUSATE SODIUM 100 MG CAP PO SCH ×2 (08:43→20:29)
[2019-08-20] MEDS: ASCORBIC ACID 500 MG TAB PO SCH ×2 (08:43→16:01)
[2019-08-20] MEDS: PROPRANOLOL HCL LA 80 MG CAPCR PO SCH (08:44)
[2019-08-20] MEDS: MULTIVITAMIN TAB PO SCH (08:44)
[2019-08-20] MEDS: MIRABEGRON ER 25 MG TAB PO SCH (08:44)
[2019-08-20] MEDS: SENNA 8.6 MG TAB PO SCH (20:29)
[2019-08-20] MEDS: ATORVASTATIN 40 MG TAB PO SCH (20:29)
[2019-08-20] MEDS: ALFUZOSIN HCL 10 MG TAB PO SCH (20:29)
[2019-08-20] MEDS: clonazePAM 0.5 MG TAB PO SCH (20:29)
[2019-08-21] MEDS: ACETAMINOPHEN 500 MG TAB PO SCH ×2 (00:42→08:28)
[2019-08-21] MEDS: TRAMADOL HCL 50 MG TABLET PO PRN (07:48)
[2019-08-21] MEDS: FERROUS GLUCONATE 324 MG TAB PO SCH (08:27)
[2019-08-21] MEDS: ASPIRIN 81 MG ECTAB PO SCH (08:28)
[2019-08-21] MEDS: PROPRANOLOL HCL LA 80 MG CAPCR PO SCH (08:28)
[2019-08-21] MEDS: MULTIVITAMIN TAB PO SCH (08:28)
[2019-08-21] MEDS: ASCORBIC ACID 500 MG TAB PO SCH (08:29)
[2019-08-21] MEDS: DOCUSATE SODIUM 100 MG CAP PO SCH (08:29)
[2019-08-21] MEDS: MIRABEGRON ER 25 MG TAB PO SCH (08:29)
--- NOTE | 2019-08-21 08:33 | Progress Notes ---
DATE: 08/21/2019 SUBJECTIVE: A 78-year-old gentleman postop day 2 from a right knee replacement. He is doing pretty well. Pain seems to be a little bit better today. Foot pain has resolved. No chest pain or shortness of breath. Not feeling dizzy or lightheaded. OBJECTIVE: VITAL SIGNS: Temperature 37.3. Vital signs stable. GENERAL: Shows a pleasant elderly male. He is lying in bed, looks pretty comfortable. EXTREMITIES: Examination of the right leg reveals the leg to be well aligned. Dressing is clean, dry, and intact. He can slightly dorsiflex and plantarflex his foot, which is normal for him. He is neurologically intact. ASSESSMENT: A 78-year-old gentleman postoperative day 2 from right knee replacement, doing reasonably well. Pain is controlled. He is neurologically stable. PLAN: 1. DVT prophylaxis including thigh-high TEDs, SCDs, and aspirin twice a day. 2. PT/OT. Weight bear as tolerated. Right total knee protocol. 3. Pain control, doing well with current pain regimen. 4. Disposition: Plan to discharge to home with some home health likely later today.
[2019-08-21] MEDS: HYDROmorphone INJ 0.5 MG/0.5 ML SYR IV PRN (10:03)
--- NOTE | 2019-08-26 15:56 | Discharge Summary ---
Date of Service August 26, 2019 Admission HPI Per Admitting Provider Documented in the H&P Admission Exam (Per Admitting) Constitutional Documented in the H&P Discharge Data Consultations 08/19/19 11:25 Consult Case Management - Discharge Planning Routine Procedures Performed Operation Date: 08/19/19 08:50 Actual Procedures p Right Total Knee Arthroplasty(Right) - Tha Mueller MD Hospital Course (1) Status post total right knee replacement: 78-year-old male admitted on 08/19/2019 and underwent total knee replacement. He tolerated the procedure well and there were no complications. He was transferred to the PACU postoperatively and later to the orthopedic floor for further care. He was given Ancef for antibiotic prophylaxis. He was given NICOLE stockings, aspirin, and SCDs for DVT prophylaxis. His hemoglobin, hematocrit, and vital signs were monitored during his hospital stay and remained stable. He did not require blood transfusions. There were no complications. By postoperative day 2 he was tolerating a regular diet, his pain was controlled with oral pain medicine, and he was participating in physical therapy. Postop day 2 was discharged home set up with home health services. He is given printed discharge instructions as well as new prescriptions for extra strength Tylenol and aspirin. Continue physical therapy. Continue NICOLE stockings. He is weightbearing as tolerated. Follow-up approximately 2 weeks postop or sooner if any problems or concerns. Coding Level of Care Code None Diagnoses Status post total right knee replacement Z96.651
== END 2019-08-21 11:13 | disposition home health service (06) ==
LOC: ASU 06:43 → 3E 06:43

== ENCOUNTER 2020-04-27 08:21 | Observation (INO) ==
--- NOTE | 2020-04-08 10:48 | Anesthesiology Consultation ---
Date of Service April 08, 2020 Assessment & Plan (1) Encounter for pre-operative examination: COVID Status: As of 04/06 nurse assessment, patient denies travel to endemic area, known exposure/sick contacts, or symptoms of COVID19. Preoperative COVID19 testing to be completed on 04/21 at [facility]. Patient has been fully vaccinated for covid-19. Patient is S/P R TKA 08/19/19. Seen in PAT prior to that surgery. New bifascicular block prompted preoperative cardiac eval and echo. Per Lucius Hall PA-C on 06/27/19: "Preoperative EKG 04/28/2019 showing Sinus Bradycardia with a LAFB and RBBB and probable LVH with repolarization abnormal ity.. Due to this EKG abnormality, patient underwent an Echocardiogram today.. Based on his functional status without limiting cardiopulmonary symptoms and his normal LV systolic function -- Patient is an acceptable surgical risk to proceed with surgery as scheduled provided he take his usual dose of Propranolol ER 80 mg the morning of surgery with sips of water. There is no need for further cardiac workup at this time." No complications noted in records for R TKA. CXR and EKG will be exactly one YTD on DOS. Can update DOS at MDA discretion. Chart Review Chart Review: Acceptable Risk for Surgery and Patient NOT seen in Pre Admission Testing History Surgery Operation Date: 04/27/20 07:00 Proposed Procedures p Left Total Knee Arthroplasty - Tha Mueller MD Height/Weight Height: 5 ft 9 in Weight: 106.594 kg Allergies Allergy/AdvReac Type Severity Reaction Status Date / Time amoxicillin Allergy Unknown RASH Verified 04/06/20 15:30 Penicillins Allergy Unknown Rash Verified 04/06/20 15:30 ALLERGEN AdvReac Unknown resulted Uncoded 04/06/20 15:30 in kidney dysfunction Medications Home Medications Medication Instructions Recorded Confirmed Last Taken atorvastatin 40 mg tablet 40 mg PO HS #90 tab 12/09/18 04/06/20 08/18/19 22:00 clonazepam 0.5 mg tablet 0.5 mg PO HS #30 tab 12/09/18 04/06/20 08/18/19 22:00 propranolol 80 mg capsule,24 80 mg PO QAM #90 cap 12/09/18 04/06/20 08/19/19 06:30 hr,extended release calcium carbonate [Tums E-X] 1 mg PO UD PRN 08/05/19 04/06/20 Unknown clindamycin HCl 300 mg capsule 600 mg PO ONCE #4 cap 09/29/19 04/06/20 Unknown alfuzosin 10 mg PO QAM 02/02/20 04/06/20 Unknown darifenacin 7.5 mg PO QAM 02/02/20 04/06/20 Unknown mirabegron [Myrbetriq] 50 mg PO QAM 02/02/20 04/06/20 Unknown Past Medical History Medical History (Updated 04/08/20 @ 10:38 by Casey Orta) Bladder infection 2 WEEKS AGO , RESOLVED BPH (benign prostatic hyperplasia) CKD (chronic kidney disease) under surveillance by PCP (baseline creatinine 1.5 per chart review) GERD (gastroesophageal reflux disease) controlled Hearing deficit History of kidney stones History of mammogram LEFT BREAST SORENESS, MAMMOGRAM - BENIGN - POSITIONAL SORENESS AT TIMES - NO BREAK IN SKIN INTEGRITY History of skin cancer HX resection Hx of fracture of femur as kid Hx of sarcoidosis stable/no recent issues Hyperlipidemia Hypertension Left knee DJD Obesity Osteoarthritis Peripheral neuropathy RBBB Restless leg syndrome Past Family History Family History Sister Family history of diabetes mellitus Father Family hx of colon cancer Past Surgical History Surgical History (Updated 04/08/20 @ 10:38 by Casey Orta) History of esophagogastroduodenoscopy (EGD) History of lumbar fusion History of tooth extraction History of total right knee replacement 08/19/19 [facility] -- SAB @ L4-L5, pt victoriano well. 5L O2 via mask. Hx of arthroscopic knee surgery LEFT Hx of cataract surgery RIGHT AND LEFT Hx of colonoscopy with polypectomy Social History Smoking Status: Never smoker Do You Dip or Chew Tobacco: No Hx Alcohol Use: No Hx Substance Use: No substance use type: does not use Testing Laboratory Results Blood Type O Positive 04/02/20 11:36 Antibody Screen NEGATIVE 04/02/20 11:36 04/02/20 WBC: 5.12 H/H: 15.3/44.9 PLATELETS: 190 SODIUM: 141 POTASSIUM: 3.9 CHLORIDE: 109 CO2: 29 BUN: 17 CREATININE: 1.51 GLUCOSE: 89 Electrocardiogram Date: 04/28/19 Findings: + SB @ (54bpm) RBBB + LAFB. *Bifascicular Block* LVH with repolarization abnormality. Bifascicular block is new compared to 2005 EKG. Patient was seen by cardio and and had echocardiogram as below. Chest X-Ray Date: 04/28/19 Findings: + NAD Echocardiogram Date: 06/27/19 EF: 55% LV Function: normal No RWMA. Mild cLVH. No significant valvular disease.
--- NOTE | 2020-04-23 19:47 | History and Physical Report ---
DATE OF ADMISSION: 04/27/2020 CHIEF COMPLAINT: Left knee pain and discomfort. HISTORY OF PRESENT ILLNESS: The patient is an 79-year-old gentleman who is now about 9 months out from a right knee replacement. He now presents for surgical treatment of his left knee. He has got a very long history of bilateral knee pain and discomfort, treated by my partner, Dr. Priest, in the past. He has been through extensive conservative treatment. He has got global pain in the left knee. The more he is up on it, the more it hurts. He is limited by his left knee. He has recovered reasonably nicely from his right knee. Not quite pain free, but much improved. He would like to have his left knee replaced. Of note, the patient does have a history of bilateral femur fractures in the past, treated conservatively. PAST MEDICAL HISTORY: 1. Hypertension. 2. Elevated cholesterol. 3. Gastroesophageal reflux disease. 4. BPH. 5. Kidney stones. 6. Peripheral edema. PAST SURGICAL HISTORY: Includes, 1. Back surgery. 2. Cataract surgery. 3. Left knee open knee surgery in the 1960s with an open meniscectomy. 4. Right knee replacement done on 08/19/2019. ALLERGIES: PENICILLIN, WHICH CAUSES A RASH. No breathing problems. CURRENT MEDICATIONS: Include, 1. Clonazepam. 2. Atorvastatin. 3. Propranolol. 4. Darifenacin. 5. Alfuzosin. 6. Myrbetriq. SOCIAL HISTORY: Significant for an 79-year-old male. He is from [place]. He does not smoke. He is . No alcohol intake. FAMILY HISTORY: Noncontributory. REVIEW OF SYSTEMS: Negative for diabetes, neurologic problem, vascular problems or bleeding disorders. No chest pain or shortness of breath. No history of DVT or PE. No known bleeding problems. PHYSICAL EXAMINATION: GENERAL: Shows a large middle-aged male. He looks to be in pretty good health. HEENT: Benign. NECK: Supple, no lymphadenopathy. LUNGS: Clear to auscultation. HEART: Has a regular rate and rhythm. ABDOMEN: Soft, nontender, nondistended. EXTREMITIES: Grossly neurovascularly intact except as follows: Examination of the left knee reveals varus alignment to his knee. He has got bony hypertrophy. He is tender over the medial joint line. He has got small knee effusion. His range of motion is about 5-10 degrees short of full extension to 120 degrees of flexion. There is no instability. No pain with hip motion. Examination of the right knee reveals a well-healed incision. Range of motion 0-120. Minimal to no swelling. No instability. X-RAYS: X-rays of the left knee were reviewed. It shows advanced left knee DJD. He has got complete loss of his medial joint space. He has got tibial femoral subluxation. He has got osteophytes of the medial femoral condyle and some lateral osteophytes as well. X-rays of the entire femur reveal a healed proximal femur fracture. Slight varus deformity. ASSESSMENT: An 79-year-old male with a history of multiple medical issues including hypertension, elevated cholesterol, gastroesophageal reflux disease, benign prostatic hyperplasia, kidney stones, and obesity with body mass index of 35, now 9 months out from a right knee replacement with advanced left knee degenerative joint disease. He does have a history of a femur fracture on this side, but it is well above the mid aspect of the femur. [place]. He has failed conservative treatment and would like to have his left knee replaced. PLAN: We will take him to the operating room and do a left total knee replacement. The risks and benefits of this procedure were explained to the patient including but not limited to DVT, PE, , infection, neurological injury, vascular injury, bleeding problem, pain, limited range of motion, stiffness, failure to relieve his symptoms, incomplete relief of symptoms, need for further surgery in the future, fracture, leg length inequality, nerve palsy, etc. The patient understands and desires to proceed. Informed consent was obtained. He does have this proximal femur fracture, but it is well above an area where the IM rods would go and should not affect alignment. As far as discharge plans, he is planning to be discharged home using [facility] home health program.
[~2020-04-27 08:21] MED LIST changes: +BUPIVACAINE 0.25% 30 ML VIAL ONE; +BUPIVACAINE 0.5 % 5 MG/1 ML PF 10ML VIAL ONE; -CEFAZOLIN 2000MG 2,000 MG/15 ML SYR IV SCH; +ceFAZolin 2000MG 2,000 MG/15 ML SYR IV SCH
--- NOTE | 2020-04-27 08:46 | History & Physical Bridge Note ---
Date of Service April 27, 2020 History & Physical Bridge Note I have examined the patient, reviewed the History & Physical and in the interval since the performance of the History & Physical I have noted the following changes of clinical significance: no changes noted
[2020-04-27] MEDS ORDERED: PROPOFOL IV EMULSION 10 MG/ML 20 ML VIAL IV ONE ×2 (09:33→12:46)
[2020-04-27] MEDS ORDERED: MIDAZOLAM HCL 1 MG/ML 2ML VIAL ONE (09:33)
[2020-04-27] MEDS ORDERED: fentaNYL citrate 100 MCG/2 ML VIAL ONE (10:23)
[2020-04-27] MEDS ORDERED: ATROPINE SULFATE 0.1 MG/ML 10ML SYR IV PRN (10:29)
[2020-04-27] MEDS ORDERED: ePHEDrine sulfate 50 MG/ML AMP IV PRN (10:29)
[2020-04-27] MEDS ORDERED: fentaNYL citrate 100 MCG/2 ML VIAL IV PRN (10:29)
[2020-04-27] MEDS ORDERED: SODIUM CHLORIDE 0.9% PF 50 ML VIAL ONE (11:04)
[2020-04-27] MEDS ORDERED: BUPIVACAINE LIPOSOME 1.3% 266 MG/20 ML VIAL ONE (11:04)
[2020-04-27] MEDS ORDERED: BACITRACIN INJ 50,000 UNIT VIAL ONE (11:04)
[2020-04-27] MEDS ORDERED: EPINEPHrine INJ 1 MG/ML AMP ONE (11:05)
[2020-04-27] MEDS ORDERED: BUPIVACAINE 0.25% 30 ML VIAL ONE (11:05)
[2020-04-27] MEDS ORDERED: VANCOMYCIN HCL 1000MG/20ML VIAL ONE (11:37)
[2020-04-27] MEDS ORDERED: ePHEDrine sulfate 50 MG/ML SYR ONE (12:24)
--- NOTE | 2020-04-27 13:19 | Operative Report ---
Post Operative Report Pre & Post Diagnosis Operation Date: 04/27/20 10:40 Pre-Op Diagnosis: Left Knee Degenerative Joint Disease Post-Op Diagnosis: Left Knee Degenerative Joint Disease I identified the patient and participated in the time-out.: Yes Procedure Operation Date: 04/27/20 10:40 Actual Procedures p Left Total Knee Arthroplasty, Cemented(Left) - Tha Mueller MD Surgeon Tha Mueller MD Tax Expert GORAN Cabrera Estimated Blood Loss 50 Findings Consistent with Post-Op Diagnosis Operative findings revealed advanced left knee DJD. Extensive grade 4 [id number] disease in the medial and patellofemoral compartments. Moderate to large knee joint effusion. Fluids 400 cc Specimens Left knee sent for pathology. Drains None. Anesthesia Type Spinal MAC Complications none Disposition Accompanied Patient To Recovery: No Disposition: Recovery Room Indications Patient is an 79-year-old gentleman who has had a long history of bilateral knee pain discomfort. He has history of an open meniscectomy on his left side in the past as well as bilateral femur fractures in the past. He underwent a right knee replacement in August and is done well from this. He continued be limited by left knee pain discomfort and elected proceed with left total knee arthroplasty. Description of Procedure Operative implants consist of: 1. Biomet Vanguard size 72.5 left posterior stabilized femoral component. 2. Biomet size 79 tibial tray. 3. 10 mm posterior stabilized polyethylene insert. 4. 34 x 8 and half all polypatella. The patient was taken to the operating identified and placed on the operating table supine position but all contact areas were properly padded. IV antibiotics tried by anesthesia team. A spinal anesthetic and abductor canal block had provided holding area. Polk catheter was placed in sterile fashion. A left thigh turn was then placed in the left lower extremities and prepped and draped in usual sterile fashion. The left leg was elevated exsanguinated with use of an Esmarch and turns placed at 300 mmHg. An anterior approach to the left knee was then performed through longitudinal incision centered over the patella. Sharp dissection was got through subcutaneous tissue down the extensor mechanism. A medial parapatellar arthrotomy incision was made. Some subperiosteal dissection was carried out medially. The fat pad was resected from each patella tendon. Lateral patellofemoral ligament was released. Patella was subluxated laterally and the knee was flexed. The osteophytes were taken off distal femur. The ACL and PCL were then released in the distal femur and the tibia subluxated anteriorly. External tibial alignment jig was then placed in the interface the tibia and adjusted 16 mm medially. Proximal tibial cut was made essentially flush with the most deficient aspect of the medial tibial plateau. The tibia was then sized to a size 79. I did remove some osteophytes from the medial and posterior medial side of the tibia. Attention drawn the femur. The distal femur was then with a sharp drop with intramedullary canal was suction. A left 6 degree valgus cutting guide was placed. The distal femoral cutting block was pinned in place. Distal femoral cut was made to take an additional 3 mm of bone off the distal femur. Femur was then sized to a size 72.5. Sized exactly to a 72.5. The AP cutting block was pinned parallel to the epicondylar axis which was 5 degrees of external rotation. The anterior cut, anterior chamfer, posterior cut, posterior chamfer cuts were made. Box cutting guide was placed in just slight lateral box cut was made. The knee was flexed. The remnants of the medial and lateral menisci were excised. The osteophytes were taken off the posterior aspect of the femur. A trial femoral component was placed. The tibial tray was pinned in maximum external rotation and the drill and stem punch were used to create defect in proximal tibia for the tibial tray. Knee was then trialed and the 10 mm insert fit most appropriately. Attention drawn the patella. The patella was cleaned of all soft tissues. Patella thickness measured 23 mm in thickness was cut down to 13. Was sized to a size 34 patella. The locals were drilled for the 34 patella. The lateral osteophyte was removed. Patella button was placed. Knee was taken through range of motion patella tracked nicely with no thumbs test. Attention drawn to placing the permanent components. All trial components were removed. A bone plug was placed in the distal femur limit blood loss. A double batch [place] G cement was mixed but I did add an additional gram of vancomycin due to his history of open surgery as well as a traction pin in this proximal tibia area. A Biomet Vanguard size 72.5 left posterior stabilized femoral component, size 79 tibial tray, and 10 mm posterior stabilized polyethylene insert, and a 34 x 8 and half all polypatella were then cemented in place. Knee was brought out into full extension total cement hardened. Final cement check was then performed. Pericapsular tissues were injected with a total of 100 cc of combination of 20 cc of Exparel, 30 cc normal saline, 50 cc of quarter percent Marcaine with epinephrine. Patient did receive 1 g tranexamic acid per the tourniquet was then let down for final tourniquet time 58 minutes. Hemostasis assured use electrocautery. Extensor mechanism closed with combination 1 PDS suture #1 Vicryl suture in [id number] fashion. Extensor mechanism checked found to be intact the subcutaneous tissue then closed with 2 Dexon suture in a buried interrupted fashion skin was closed skin porsche. Leg was then cleaned dried a sterile dressing composed Xeroform, 4 x 4's, sterile cast padding, Dougie bandage were applied. Patient then transferred to the recovery room in stable condition. Patient tolerated procedure well and there were no complications. Kit Cabrera, my physician digital sales assistant, was present for the entire procedure. His assistance was essential and required for appropriate patient positioning, prepping and draping, surgical exposure, performing the technical details of the operation, placement the implants, closure of the wound, and placement of the sterile bandage. I attest to the content of the Intraoperative Record and any orders documented therein. Any exceptions are noted below.
--- NOTE | 2020-04-27 13:34 | XRay Report ---
XR knee LT 1 or 2V routine CLINICAL HISTORY: Surgical Post Op COMPARISON: None. DISCUSSION: There are postsurgical changes of a total left knee arthroplasty and patellar resurfacing . There is gas within the soft tissues consistent with recent surgery. The femoral and tibial compone nts appear well seated. There are overlying skin porsche. IMPRESSION: Postsurgical changes of a total left knee arthroplasty. ACT 112: Negative or not required by law. Electronically signed by: Regan Carbajal M.D. 04/27/2020 1:33 PM
--- NOTE | 2020-04-27 13:35 | Anesthesiology Progress Note ---
Date of Service April 27, 2020 Anesthesia Post Procedure Vital Signs Vital Signs: Temp Pulse Pulse Resp BP Pulse Ox 04/27/20 13:25 53 L 18 137/80 95 04/27/20 13:15 59 L 18 128/56 L 95 04/27/20 13:09 36.1 C L 61 18 134/72 99 04/27/20 09:24 36.8 C 59 L 20 171/86 H 95 Transfer of Care Handoff Completed per policy Notes Mental Status: alert / awake / arousable and participated in evaluation Nausea / Vomiting: adequately controlled Pain: adequately controlled Airway Patency, RR, SpO2: stable & adequate BP & HR: stable & adequate Hydration State: stable & adequate Neuraxial Anesthesia: was administered and sensory block is resolving Anesthetic Complications: no major complications apparent and Pt Satisfied with anesthetic care
[2020-04-27] MEDS ORDERED: NO NSAIDS SCH (14:00)
[2020-04-27] MEDS ORDERED: TAMSULOSIN HCL 0.4 MG CAP PO PRN (14:00)
[2020-04-27] MEDS ORDERED: NALOXONE HCL 0.4 MG/1 ML VIAL/CARP IV PRN (14:00)
[2020-04-27] MEDS ORDERED: METOCLOPRAMIDE HCL INJ 5 MG/ML 2 ML VIAL IV PRN (14:00)
[2020-04-27] MEDS ORDERED: ONDANSETRON INJ 2 MG/ML 2 ML VIAL IV PRN (14:00)
[2020-04-27] MEDS ORDERED: MAGNESIUM HYDROXIDE SUSP 30 ML UDC PO PRN (14:00)
[2020-04-27] MEDS ORDERED: ALUMINUM/MAGNESIUM SUSP 30 ML UDC PO PRN (14:00)
[2020-04-27] MEDS ORDERED: bisacodyL 10 MG SUPP PR PRN (14:00)
[2020-04-27] MEDS ORDERED: CALCIUM CARBONATE 500 MG CHEWABLE TAB PO PRN (14:13)
[2020-04-27] MEDS: ACETAMINOPHEN 500 MG TAB PO SCH ×2 (14:59→22:37)
[2020-04-27] MEDS: SODIUM CHLORIDE 0.9% 1000ML 1,000 ML IV SCH ×2 (15:00→21:23)
[2020-04-27] MEDS: traMADol HCL 50 MG TABLET PO PRN (15:49)
[2020-04-27] MEDS: HYDROmorphone INJ 0.5 MG/0.5 ML SYR IV PRN ×2 (16:52→21:23)
[2020-04-27] MEDS: FERROUS GLUCONATE 324 MG TAB PO SCH (17:36)
[2020-04-27] MEDS: ASCORBIC ACID 500 MG TAB PO SCH (17:36)
[2020-04-27] MEDS: ceFAZolin 2000MG 2,000 MG/15 ML SYR IV SCH (18:17)
[2020-04-27] MEDS ORDERED: TRANEXAMIC ACID / 0.7% NACL 1,000 MG/100 ML BAG IV SCH (19:00)
[2020-04-27] MEDS ORDERED: SENNA 8.6 MG TAB PO SCH (21:00)
[2020-04-27] MEDS ORDERED: clonazePAM 0.5 MG TAB PO SCH (21:00)
[2020-04-27] MEDS ORDERED: ATORVASTATIN 40 MG TAB PO SCH (21:00)
[2020-04-27] MEDS: DOCUSATE SODIUM 100 MG CAP PO SCH (21:23)
[2020-04-27] MEDS: ASPIRIN 81 MG ECTAB PO SCH (21:23)
[2020-04-28] MEDS: ceFAZolin 2000MG 2,000 MG/15 ML SYR IV SCH (02:45)
[2020-04-28] MEDS: ACETAMINOPHEN 500 MG TAB PO SCH ×2 (06:00→14:31)
[2020-04-28 06:41] LABS: Hematocrit (blood only) 37.5 % (42-52); Hemoglobin 13.3 g/dL (14.0-18.0); Mean Corpuscular Hemoglobin 31.3 pg (25-34); Mean Corpuscular Hgb Conc 35.5 g/dL (32-36); Mean Corpuscular Volume 88.2 fL (80-100); Mean Platelet Volume 9.1 fL (7.4-10.4); Platelet Count 177 K/uL (130-400); RDW Coefficient of Variation 13.5 % (11.5-14.5); RDW Standard Deviation 43.4 fL (36.4-46.3); Red Blood Count 4.25 M/uL (4.7-6.1); White Blood Count 8.85 K/uL (4.8-10.8)
[2020-04-28 07:11] LABS: BUN Creatinine Ratio 10.5 (10-20); Calcium 8.5 mg/dl (8.5-10.1); Creatinine Clr Calc Pharmacy 42.7 ml/min; Est GFR (African American) 44.1; Est GFR (Non-African American) 38.1; Potassium 4.2 mmol/L (3.5-5.1)
[2020-04-28] MEDS: traMADol HCL 50 MG TABLET PO PRN ×2 (07:37→16:01)
[2020-04-28] MEDS: FERROUS GLUCONATE 324 MG TAB PO SCH (07:39)
[2020-04-28] MEDS: ASCORBIC ACID 500 MG TAB PO SCH (07:39)
[2020-04-28] MEDS ORDERED: dexAMETHasone 4 MG TAB PO SCH (08:00)
[2020-04-28] MEDS ORDERED: ALFUZOSIN HCL 10 MG TAB PO SCH (09:00)
[2020-04-28] MEDS ORDERED: PROPRANOLOL HCL LA 80 MG CAPCR PO SCH (09:00)
[2020-04-28] MEDS ORDERED: MIRABEGRON ER 25 MG TAB PO SCH (09:00)
[2020-04-28] MEDS ORDERED: MULTIVITAMIN TAB PO SCH (09:00)
[2020-04-28] MEDS: DOCUSATE SODIUM 100 MG CAP PO SCH (10:10)
[2020-04-28] MEDS: ASPIRIN 81 MG ECTAB PO SCH (10:10)
[2020-04-28] MEDS: HYDROmorphone INJ 0.5 MG/0.5 ML SYR IV PRN (10:19)
--- NOTE | 2020-04-28 17:38 | Progress Notes ---
DATE: 04/28/2020 SUBJECTIVE: An 79-year-old gentleman postop day 1 from a left knee replacement. He is doing pretty well. Therapy went well. His pain has been controlled. Denies any chest pain or shortness of breath. Not feeling dizzy or lightheaded. OBJECTIVE: VITAL SIGNS: Temperature 36.9. Vital signs are stable. GENERAL: Shows a pleasant elderly male. He is sitting up in bed, looks pretty comfortable. LUNGS: Clear to auscultation. HEART: Regular rate and rhythm. ABDOMEN: Soft, nontender, nondistended. EXTREMITIES: Grossly neurovascularly intact except as follows: Examination of the left leg reveals the dressing to be clean, dry and intact. No significant drainage. He can dorsiflex and plantarflex his foot appropriately. He has got good brisk refill. Sensation is intact. LABORATORY DATA: Hemoglobin 13.3. Hematocrit 37.5. Electrolytes are stable. He has got chronic renal insufficiency and his creatinine is stable. ASSESSMENT: An 79-year-old gentleman postoperative day 1 from left knee replacement. Seems to be doing well. His pain is controlled. His creatinine is elevated, but about baseline. PLAN: 1. DVT prophylaxis including thigh-high TEDs, SCDs, and aspirin twice a day. 2. PT/OT. Weight bear as tolerated. Left total knee protocol. 3. Pain control, doing well with current pain regimen. 4. Disposition. He is hoping to go home. He has been set up with some home health. Discharge this afternoon.
--- NOTE | 2020-05-03 06:56 | Discharge Summary ---
Date of Service May 03, 2020 Discharge Data Consultations 04/27/20 14:00 Consult Case Management - Discharge Planning Routine Procedures Performed Operation Date: 04/27/20 10:40 Actual Procedures p Left Total Knee Arthroplasty, Cemented(Left) - Tha Mueller MD Hospital Course (1) Status post total left knee replacement: This patient is a 79 year old male admitted on 04/27/20 and underwent total knee arthroplasty. He tolerated the procedure well and there were no complications. Transferred to the PACU post op and later to the orthopedic floor for further care. He was given ancef for antibiotic prophylaxis. He was also given NICOLE stockings, SCDs, and aspirin for DVT prophylaxis. Hemoglobin, tre tocrit, and vital signs were monitored during his hospital stay and remained stable. Did not require any blood transfusions. There were no complications during his hospital stay. By post op day #1 the patient was tolerating a regular diet, pain was reasonably controlled with oral pain medicine, and he was participating in physical therapy. On post op day #1 the patient was discharged home and set up with home health care. He was given printed discharge instructions including prescriptions for extra strength tylenol, aspirin, and tramadol. Continue physical therapy, weight bearing as tolerated. Continue NICOLE stockings. Follow up approximately 2 weeks post op or sooner if there are problems or concerns. Coding Level of Care Code None Diagnoses Status post total left knee replacement Z96.652
== END 2020-04-28 16:35 | disposition home health service (06) ==
LOC: ASU 08:21 → 3E 08:21